=== PATIENT | female | born 1970 | race Hispanic/Latino ===

== ENCOUNTER 2024-02-05 03:16 | Emergency (ER) | payer OTHER ==
[~2024-02-05] VITALS: Ht 162.6 cm; Wt 79.4 kg
[2024-02-05 03:47] VITALS: BP 122/74; PULSE 86; RESP 18; O2SAT 98
[2024-02-05] MEDS: DIAZEPAM 5 MG TABLET PO STA (04:13)
[2024-02-05] MEDS ORDERED: DIAZ2TAB PO (04:14)
== END 2024-02-05 04:42 | disposition home or self-care (01) ==
LOC: EDH 03:16
DX: F41.1 Generalized anxiety disorder (principal)

== ENCOUNTER → 2025-01-01 | Outpatient (CLI) | payer OTHER ==
[~2025-01-01] MED LIST: DIAZ2TAB PO; GADOTERATE MEGLUMINE 5 MMOL/10 ML VIAL IV ONE; IOHEXOL 180 MG/ML 20 ML VIAL ONE
--- NOTE | 2025-01-01 11:24 | HMCIMG ---
MR SHOULDER RIGHT WWO HISTORY: No additional history given. COMPARISON: None TECHNIQUE: MRI of the right shoulder was performed utilizing multiple pulse sequences in axial, coronal and sagittal planes. Patient was not given contrast through intravenous route. Patient is status post arthrogram FINDINGS: No abnormal signal intensity is seen of the visualized bony structure. Hypertrophic degenerative changes are seen of the acromioclavicular joint. There is downward sloping of acromion in a medial to lateral direction encroaching upon the rotator cuff tendon and muscles. There is rotator cuff tendinosis. There is extravasation of contrast into the subacromial-subdeltoid posterior complex consistent with rotator cuff tendon tear. This is mostly involving the supraspinatus muscle/tendon. The glenoid labrum is intact. Bicipital tendon is seen within its groove. No appreciable amount of joint effusion is seen. IMPRESSION: 1. Complete rotator cuff tendon tear with extravasation of contrast into the subacromial-subdeltoid bursa complex.
--- NOTE | 2025-01-01 16:22 | HMCIMG ---
INJECTION FOR SHOULDER XRAY RT HISTORY: Fracture arthrogram for MR arthrogram study COMPARISON: None TECHNIQUE: Informed consent was obtained. Risks and benefits were explained to the patient. A timeout was performed. Patient was prepped and draped in a sterile fashion. Local anesthetics was given as required. Under fluoroscopic guidance, the right glenohumeral joint space was localized. 20-gauge spinal needle was used and inserted into the right glenohumeral joint space. Small amount of radiopaque contrast was given for localization purpose. Subsequently, diluted MRI contrast was given. FINDINGS: Patient tolerated procedure without complication. Patient left the department in good condition. IMPRESSION: 1. Patient tolerated procedure without complication. Patient was returned to the MRI suite.
== END ==
LOC: RAH 07:42
PROVIDERS: ATTEND Family Medicine
DX: S43.431A Superior glenoid labrum lesion of right shoulder, initial encounter (principal); M75.121 Complete rotator cuff tear or rupture of right shoulder, not specified as traumatic; M25.511 Pain in right shoulder; Z79.899 Other long term (current) drug therapy; W13.3XXA Fall through floor, initial encounter; Y93.89 Activity, other specified; Y92.89 Other specified places as the place of occurrence of the external cause; Y99.8 Other external cause status
CPT/HCPCS: 73223; 77002; 23350; Q9965; A9575